=== PATIENT | male | born 1955 | race Caucasian/White ===

== ENCOUNTER → 2021-04-02 09:41 | Outpatient (BNVA) | payer MEDICARE, SELFPAY | PROVIDERS: Referring Provider Emergency Medicine; Visit Provider Emergency Medicine | DX: M25.462 Effusion, left knee (principal); M25.562 Pain in left knee | CPT/HCPCS: 73562 ==

== ENCOUNTER → 2021-08-15 08:53 | Outpatient (BNVA) | payer MEDICARE, MEDICAID, SELFPAY | PROVIDERS: Visit Provider Specialist | DX: M17.12 Unilateral primary osteoarthritis, left knee (principal); Z87.891 Personal history of nicotine dependence; M25.462 Effusion, left knee; Z46.89 Encounter for fitting and adjustment of other specified devices; M25.562 Pain in left knee | CPT/HCPCS: 73560; 73565; 97760; 99204; L1812 ==

== ENCOUNTER 2021-08-15 10:59 | Outpatient (CLI) | payer MEDICARE, MEDICAID, SELFPAY | END 2021-08-15 11:00 | disposition home or self-care (01) | LOC: SPT 11:01 | PROVIDERS: Visit Provider Specialist | DX: Z46.89 Encounter for fitting and adjustment of other specified devices (principal); M25.562 Pain in left knee | CPT/HCPCS: 97760; J1100; J2795; J3301; L1812 ==